=== PATIENT | male | born 1955 | race Caucasian/White ===

== ENCOUNTER 2024-04-28 22:02 | Inpatient (IN) | payer MEDICARE, MEDICAID ==
[~2024-04-28] VITALS: Ht 175.3 cm; Wt 65.0 kg
[~2024-04-28 22:02] MED LIST: DOXY-354 PO
[2024-04-28 23:31] LABS: BASOPHILS % (AUTO) 0.9 % (0.0-2.0); HEMATOCRIT 37.1 % (41-53); HEMOGLOBIN 12.4 g/dL (13.5-17.5); LYMPHOCYTES # (AUTO) 2.6 K/uL (1.0-4.8); LYMPHOCYTES % (AUTO) 19.5 % (22.0-44.0); MEAN CORPUSCULAR HEMOGLOBIN 28.3 pg (26.0-34.0); MEAN CORPUSCULAR HGB CONC 33.3 G/dL (31.0-37.0); MEAN CORPUSCULAR VOLUME 85 fL (80-100); MONOCYTES # (AUTO) 1.6 K/uL (0.1-1.0); MONOCYTES % (AUTO) 11.6 % (2.0-9.0); PLATELET COUNT (AUTO) 411 K/uL (150-450); RED BLOOD CELL COUNT(AUTO) 4.37 MIL/uL (4.50-5.90); RED CELL DISTRIBUTION WIDTH 15.6 % (11.5-14.5); WHITE BLOOD COUNT (AUTO) 13.4 K/uL (4.5-11.0)
[2024-04-28 23:39] LABS: ANION GAP 11 mmol/L (8-16); CALCIUM, TOTAL 8.8 mg/dL (8.8-10.5); CARBON DIOXIDE 26 mmol/L (22-29); CHLORIDE 105 mmol/L (98-107); CREATININE 1.29 mg/dL (0.60-1.30); GLOMERULAR FILTR. RATE CALC 55 mL/min (>60); GLUCOSE,RANDOM 98 mg/dL (70-110); POTASSIUM 3.5 mmol/L (3.5-5.1); SODIUM SERUM 142 mmol/L (136-145); UREA NITROGEN, BLOOD 27 mg/dL (7-18)
[2024-04-28 23:48] LABS: ALCOHOL, BLOOD (SERUM) < 3 mg/dL (0-10)
[2024-04-29] MEDS: HALOPERIDOL LACTATE 5 MG/ML VIAL IM ONE (00:40)
[2024-04-29] MEDS: LORazepam 2 MG/ML VIAL IM ONE (00:41)
[2024-04-29] MEDS: DiphenhydrAMINE HCL 50 MG/ML VIAL IM ONE (00:41)
[2024-04-29 03:14] LABS: COVID AG,FIA SOURCE NASAL SWAB
[2024-04-29 03:25] LABS: SARS-COV2 (COVID) ANTIGEN,FIA Negative (Negative)
[2024-04-29] MEDS ORDERED: HALOPERIDOL 5 MG TABLET PO PRN (05:15)
[2024-04-29] MEDS ORDERED: ZOLPIDEM TARTRATE 10 MG TABLET PO PRN (05:15)
[2024-04-30 00:23] VITALS: BP 119/69; PULSE 65; RESP 17; TEMP 97.3; O2SAT 97
[2024-04-30 01:35] VITALS: BP 119/69; PULSE 65; RESP 17; TEMP 97.3
[2024-04-30] MEDS ORDERED: DOCUSATE SODIUM 100 MG CAPSULE PO PRN (05:45)
[2024-04-30] MEDS ORDERED: CloNIDine HCL 0.1 MG TABLET PO PRN (05:45)
[2024-04-30] MEDS ORDERED: PETROLATUM,WHITE 28 GM JELLY TP PRN (05:45)
[2024-04-30] MEDS ORDERED: MAG HYDROX/ALUMINUM HYD/SIMETH ES 30 ML SUSPENSION UDCUP PO PRN (05:45)
[2024-04-30] MEDS ORDERED: IBUPROFEN 600 MG TABLET PO PRN (05:45)
[2024-04-30] MEDS ORDERED: LOPERAMIDE HCL 2 MG CAPSULE PO PRN (05:45)
[2024-04-30] MEDS ORDERED: MAGNESIUM HYDROXIDE SUSPENSION 30 ML UDCUP PO PRN (05:45)
[2024-04-30] MEDS ORDERED: ONDANSETRON HCL 4 MG TABLET PO PRN (05:45)
[2024-04-30] MEDS ORDERED: ALBUTEROL SULFATE HFA 90 MCG/PUFF 8 GM INHALER IH PRN (05:45)
[2024-04-30] MEDS ORDERED: OMEPRAZOLE 20 MG CAPSULE PO PRN (05:45)
[2024-04-30] MEDS ORDERED: BACITRACIN 28 GM OINTMENT TP PRN (05:45)
[2024-04-30] MEDS ORDERED: BENZOCAINE/MENTHOL LOZENGE PO PRN (05:45)
[2024-04-30 08:39] LABS: APPEARANCE,URINE CLEAR (CLEAR); BILIRUBIN,URINE NEGATIVE (NEGATIVE); COLOR,URINE YELLOW (YELLOW); GLUCOSE, URINE (UA) NEGATIVE (NEGATIVE); KETONES,URINE NEGATIVE (NEGATIVE); LEUKOCYTE ESTERASE ,URINE NEGATIVE (NEGATIVE); NITRATE,URINE NEGATIVE (NEGATIVE); OCCULT BLOOD,URINE NEGATIVE (NEGATIVE); PROTEIN,URINE 30-70 mg/dL (NEGATIVE); UROBILINOGEN,URINE <=1.0 mg/dL (<=1.0)
[2024-04-30 08:50] VITALS: BP 119/76; PULSE 78; RESP 19; TEMP 97.9; O2SAT 95
[2024-04-30 09:04] LABS: ALCOHOL, URINE DRUG SCREEN NEGATIVE (NEGATIVE); AMPHET/METH SCREEN,URINE POSITIVE (NEGATIVE); BARBITURATE SCREEN, URINE NEGATIVE (NEGATIVE); BENZODIAZEPINES SCREEN,URINE NEGATIVE (NEGATIVE); CANNABINOID SCREEN,URINE NEGATIVE (NEGATIVE); COCAINE SCREEN,URINE NEGATIVE (NEGATIVE); METHADONE SCREEN, URINE NEGATIVE (NEGATIVE); OPIATE SCREEN,URINE NEGATIVE (NEGATIVE); PHENCYCLIDINE SCREEN,URINE NEGATIVE (NEGATIVE)
[2024-04-30] MEDS: NICOTINE 21 MG/24 HOUR PATCH TD SCH (09:56)
[2024-04-30] MEDS: ACETAMINOPHEN 325 MG TABLET PO PRN (20:25)
[2024-04-30 21:09] VITALS: BP 130/84; PULSE 66; RESP 18; TEMP 97.7; O2SAT 100
[2024-04-30 23:07] VITALS: BP 130/84; PULSE 66; RESP 18; TEMP 97.7; O2SAT 98
[2024-05-01 08:24] VITALS: BP 125/69; PULSE 64; RESP 17; TEMP 98.3; O2SAT 98
[2024-05-01] MEDS: RisperiDONE 1 MG TABLET PO SCH (16:26)
[2024-05-01 20:26] VITALS: BP 134/76; PULSE 63; RESP 18; TEMP 97.7; O2SAT 97
[2024-05-02 08:53] VITALS: BP 127/66; PULSE 64; RESP 16; TEMP 97.2; O2SAT 98
[2024-05-02 20:22] VITALS: BP 151/78; PULSE 72; RESP 21; TEMP 98.1; O2SAT 98
[2024-05-03 08:23] VITALS: BP 135/72; PULSE 62; RESP 16; TEMP 97.7; O2SAT 97
[2024-05-03 20:24] VITALS: BP 148/87; PULSE 70; RESP 20; TEMP 97; O2SAT 97
[2024-05-04 08:17] VITALS: BP 124/76; PULSE 70; RESP 14; TEMP 97.6; O2SAT 97
[2024-05-04] MEDS: LORazepam 2 MG TABLET PO PRN (20:20)
[2024-05-04 21:31] VITALS: BP 138/74; PULSE 62; RESP 18; TEMP 97.5; O2SAT 98
[2024-05-05 08:48] VITALS: BP 137/77; PULSE 71; RESP 18; TEMP 97.9; O2SAT 98
[2024-05-05 20:13] VITALS: BP 148/87; PULSE 84; TEMP 98.1; O2SAT 97
[2024-05-06 18:37] VITALS: BP 127/59; PULSE 66; RESP 17; TEMP 97.6; O2SAT 98
[2024-05-06 20:05] VITALS: BP 140/85; PULSE 88; RESP 18; TEMP 98.2; O2SAT 96
[2024-05-07 08:45] VITALS: BP 145/75; PULSE 70; RESP 17; TEMP 98.1; O2SAT 97
[2024-05-07 20:32] VITALS: BP 150/82; PULSE 72; RESP 18; TEMP 98.7; O2SAT 91
[2024-05-08 11:27] VITALS: BP 144/78; PULSE 73; RESP 18; TEMP 98; O2SAT 97
[2024-05-08 19:40] VITALS: RESP 18
[2024-05-08 20:41] VITALS: BP 114/62; PULSE 77; RESP 18; TEMP 97.7; O2SAT 96
[2024-05-09 10:40] VITALS: BP 110/75; PULSE 66; RESP 18; TEMP 97.3; O2SAT 100
[2024-05-09 22:08] VITALS: BP 133/83; PULSE 82; RESP 18; TEMP 96.1; O2SAT 98
[2024-05-10 09:01] VITALS: BP 134/78; PULSE 65; RESP 18; TEMP 97.6; O2SAT 97
[2024-05-10 20:47] VITALS: BP 143/83; PULSE 72; RESP 18; TEMP 97.9; O2SAT 99
[2024-05-11 09:21] VITALS: BP 140/80; PULSE 90; RESP 18; TEMP 98.3; O2SAT 100
[2024-05-11] MEDS ORDERED: RISP-31 PO (13:15)
== END 2024-05-11 16:32 | disposition home or self-care (01) | DRG 885 ==
LOC: EMS 22:07 → B2X 04-29 18:35
PROVIDERS: ADMIT Psychiatry & Neurology Psychiatry; ATTEND Psychiatry & Neurology Psychiatry
PROC: GZHZZZZ Group Psychotherapy (ICD-10-PCS; principal; 2024-05-01)
PROC: GZ52ZZZ Individual Psychotherapy, Cognitive (ICD-10-PCS; 2024-05-01)
DX: F25.9 Schizoaffective disorder, unspecified (principal); I10 Essential (primary) hypertension; K21.9 Gastro-esophageal reflux disease without esophagitis; G47.00 Insomnia, unspecified; Z20.822 Contact with and (suspected) exposure to COVID-19; F15.10 Other stimulant abuse, uncomplicated; F41.9 Anxiety disorder, unspecified; Z72.0 Tobacco use; Z79.899 Other long term (current) drug therapy; Z91.148 Patient's other noncompliance with medication regimen for other reason
CPT/HCPCS: 80048; 80307; 81003; 85025; 99285; G0480; J1200; J1630; J2060

== ENCOUNTER 2024-10-04 16:43 | Emergency (ER) | payer MEDICARE, MEDICAID ==
[~2024-10-04] VITALS: Ht 167.6 cm; Wt 63.6 kg
[~2024-10-04 16:43] MED LIST changes: -DOXY-354 PO; +RISP-31 PO
[2024-10-04 16:50] VITALS: BP 130/77; PULSE 76; RESP 18; TEMP 98; O2SAT 99
[2024-10-04 18:18] LABS: EOSINOPHILS % (AUTO) 1.6 % (1.0-6.0); HEMOGLOBIN 12.4 g/dL (13.5-17.5); LYMPHOCYTES # (AUTO) 1.9 K/uL (1.0-4.8); LYMPHOCYTES % (AUTO) 20.4 % (22.0-44.0); MEAN CORPUSCULAR HEMOGLOBIN 29.4 pg (26.0-34.0); MEAN CORPUSCULAR HGB CONC 33.4 G/dL (31.0-37.0); MEAN CORPUSCULAR VOLUME 88 fL (80-100); MONOCYTES # (AUTO) 0.9 K/uL (0.1-1.0); MONOCYTES % (AUTO) 9.5 % (2.0-9.0); NEUTROPHILS # (AUTO) 6.3 K/uL (1.8-7.7); NEUTROPHILS % (AUTO) 67.5 % (40.0-70.0); PLATELET COUNT (AUTO) 362 K/uL (150-450); WHITE BLOOD COUNT (AUTO) 9.4 K/uL (4.5-11.0)
[2024-10-04 18:29] LABS: CALCIUM, TOTAL 8.5 mg/dL (8.8-10.5); CREATININE 1.22 mg/dL (0.60-1.30); POTASSIUM 3.6 mmol/L (3.5-5.1)
[2024-10-04 18:34] LABS: ALBUMIN 3.7 g/dL (3.4-5.0); BILIRUBIN,TOTAL 0.9 mg/dL (0.1-1.0)
== END 2024-10-04 18:44 | disposition home or self-care (01) ==
LOC: EMS 16:43
DX: R53.1 Weakness (principal); R53.83 Other fatigue; R41.0 Disorientation, unspecified; F17.210 Nicotine dependence, cigarettes, uncomplicated
CPT/HCPCS: 80053; 85025; 99283

== ENCOUNTER 2024-10-05 07:08 | Inpatient (IN) | payer MEDICARE, MEDICAID ==
[~2024-10-05] VITALS: Ht 175.3 cm; Wt 72.1 kg
[2024-10-05 07:57] LABS: COVID AG,FIA SOURCE NASAL SWAB
[2024-10-05 08:25] LABS: SARS-COV2 (COVID) ANTIGEN,FIA Negative (Negative)
[2024-10-05] MEDS ORDERED: LORazepam 2 MG TABLET PO PRN (09:00)
[2024-10-05] MEDS ORDERED: HALOPERIDOL 5 MG TABLET PO PRN (09:00)
[2024-10-05 10:53] VITALS: O2SAT 98
[2024-10-05 12:31] VITALS: BP 145/82; PULSE 78; RESP 17; TEMP 97.8; O2SAT 99
[2024-10-05 20:17] VITALS: BP 152/72; PULSE 70; RESP 18; TEMP 97.6; O2SAT 100
[2024-10-06 08:23] LABS: HEMOGLOBIN A1C 5.3 % (3.8-5.6)
[2024-10-06 08:35] LABS: CHOL/HDL RATIO 2.9 (4.2-7.3)
[2024-10-06 09:01] VITALS: BP 134/72; PULSE 67; RESP 18; TEMP 98; O2SAT 98
[2024-10-06] MEDS ORDERED: DOCUSATE SODIUM 100 MG CAPSULE PO PRN (15:15)
[2024-10-06] MEDS ORDERED: IBUPROFEN 400 MG TABLET PO PRN (15:15)
[2024-10-06] MEDS ORDERED: ALBUTEROL SULFATE HFA 90 MCG/PUFF 8 GM INHALER IH PRN (15:15)
[2024-10-06] MEDS ORDERED: MAG HYDROX/ALUMINUM HYD/SIMETH ES 30 ML SUSPENSION UDCUP PO PRN (15:15)
[2024-10-06] MEDS ORDERED: CloNIDine HCL 0.1 MG TABLET PO PRN (15:15)
[2024-10-06] MEDS ORDERED: ACETAMINOPHEN 325 MG TABLET PO PRN (15:15)
[2024-10-06] MEDS ORDERED: PETROLATUM,WHITE 28 GM JELLY TP PRN (15:15)
[2024-10-06] MEDS ORDERED: ONDANSETRON 4 MG TABLET PO PRN (15:15)
[2024-10-06] MEDS ORDERED: GuaiFENesin/D-METHORPHAN [SUGAR-FREE] 200-20MG/10 ML SYRUP UDCUP PO PRN (15:15)
[2024-10-06] MEDS ORDERED: LOPERAMIDE HCL 2 MG CAPSULE PO PRN (15:15)
[2024-10-06] MEDS ORDERED: MAGNESIUM HYDROXIDE SUSPENSION 30 ML UDCUP PO PRN (15:15)
[2024-10-06 21:13] VITALS: BP 149/93; PULSE 80; RESP 18; TEMP 97.6; O2SAT 100
[2024-10-07 08:19] VITALS: BP 142/79; PULSE 82; RESP 16; TEMP 98.1; O2SAT 99
[2024-10-07 09:03] LABS: HEMOGLOBIN A1C 5.5 % (3.8-5.6)
[2024-10-07 09:12] LABS: CHOL/HDL RATIO 3.2 (4.2-7.3); THYROID STIMULATING HORMONE 1.45 uIU/mL (0.36-3.74)
[2024-10-07 20:25] VITALS: BP 118/90; PULSE 83; RESP 17; TEMP 98; O2SAT 100
[2024-10-08 08:47] VITALS: BP 165/75; PULSE 69; RESP 18; TEMP 97.8; O2SAT 98
[2024-10-08 09:27] LABS: APPEARANCE,URINE CLEAR (CLEAR); BILIRUBIN,URINE NEGATIVE (NEGATIVE); COLOR,URINE YELLOW (YELLOW); GLUCOSE, URINE (UA) NEGATIVE (NEGATIVE); KETONES,URINE TRACE mg/dL (NEGATIVE); LEUKOCYTE ESTERASE ,URINE NEGATIVE (NEGATIVE); NITRATE,URINE NEGATIVE (NEGATIVE); OCCULT BLOOD,URINE NEGATIVE (NEGATIVE); PH,URINE 6.5 (5.0-8.0); PH,URINE DRUG SCREEN 6.5 (5.0-8.0); PROTEIN,URINE TRACE mg/dL (NEGATIVE); SPECIFIC GRAVITIY, URINE 1.037 (1.003-1.030)
[2024-10-08 09:30] LABS: ALCOHOL, URINE DRUG SCREEN NEGATIVE (NEGATIVE); AMPHET/METH SCREEN,URINE POSITIVE (NEGATIVE); BARBITURATE SCREEN, URINE NEGATIVE (NEGATIVE); BENZODIAZEPINES SCREEN,URINE NEGATIVE (NEGATIVE); CANNABINOID SCREEN,URINE NEGATIVE (NEGATIVE); COCAINE SCREEN,URINE NEGATIVE (NEGATIVE); METHADONE SCREEN, URINE NEGATIVE (NEGATIVE); OPIATE SCREEN,URINE NEGATIVE (NEGATIVE); PHENCYCLIDINE SCREEN,URINE NEGATIVE (NEGATIVE)
[2024-10-08 20:37] VITALS: BP 140/86; PULSE 93; RESP 16; TEMP 97.7; O2SAT 98
[2024-10-08] MEDS: ZOLPIDEM TARTRATE 10 MG TABLET PO PRN (20:45)
[2024-10-09 09:08] VITALS: BP 129/84; PULSE 74; RESP 17; TEMP 98.2; O2SAT 98
[2024-10-09 20:41] VITALS: BP 130/80; PULSE 80; RESP 16; TEMP 97.2; O2SAT 97
[2024-10-10 08:14] VITALS: BP 120/68; PULSE 95; RESP 17; TEMP 97.5; O2SAT 99
[2024-10-10 20:24] VITALS: BP 128/82; PULSE 92; RESP 18; TEMP 97.6; O2SAT 99
[2024-10-11 08:07] VITALS: BP 121/64; PULSE 72; RESP 16; TEMP 98.2; O2SAT 100
[2024-10-11 21:05] VITALS: BP 122/84; PULSE 81; RESP 18; TEMP 97.3; O2SAT 99
[2024-10-12 08:15] VITALS: BP 109/70; PULSE 94; RESP 18; TEMP 97.3; O2SAT 98
[2024-10-12 21:43] VITALS: BP 134/73; PULSE 86; RESP 18; TEMP 97.6; O2SAT 99
[2024-10-13 08:20] VITALS: BP 129/72; PULSE 92; RESP 17; TEMP 97.5; O2SAT 97
[2024-10-13 20:54] VITALS: BP 130/78; PULSE 73; RESP 16; TEMP 97.2; O2SAT 98
[2024-10-14 08:27] VITALS: BP 131/82; PULSE 75; RESP 17; TEMP 96.6; O2SAT 100
[2024-10-14 20:58] VITALS: BP 113/77; PULSE 85; RESP 18; TEMP 97.7; O2SAT 95
[2024-10-15 08:54] VITALS: BP 119/69; PULSE 87; RESP 17; TEMP 97.9; O2SAT 99
[2024-10-15 21:47] VITALS: BP 142/53; PULSE 89; RESP 16; TEMP 97.9; O2SAT 98
[2024-10-16 09:27] VITALS: BP 131/68; PULSE 60; RESP 18; TEMP 97.9; O2SAT 100
[2024-10-16 20:13] VITALS: BP 132/72; PULSE 64; RESP 19; TEMP 98; O2SAT 94
[2024-10-17 08:25] VITALS: BP 138/75; PULSE 90; RESP 18; TEMP 96.7; O2SAT 100
[2024-10-17] MEDS: NICOTINE 14 MG/24 HOUR PATCH TD PRN (09:08)
[2024-10-17 20:13] VITALS: BP 136/82; PULSE 82; RESP 18; TEMP 95.8; O2SAT 100
[2024-10-18 08:39] VITALS: BP 119/69; PULSE 71; RESP 18; TEMP 97.5; O2SAT 100
[2024-10-18 20:52] VITALS: BP 137/87; PULSE 81; RESP 18; TEMP 96.5; O2SAT 99
[2024-10-19 08:25] VITALS: BP 120/74; PULSE 63; RESP 18; TEMP 97.7; O2SAT 99
== END 2024-10-19 16:14 | disposition home or self-care (01) | DRG 885 ==
LOC: EMS 07:08 → B3A 10:52 → B2S 10-17 10:46
PROVIDERS: ADMIT Psychiatry & Neurology Child & Adolescent Psychiatry; ATTEND Psychiatry & Neurology Child & Adolescent Psychiatry
PROC: GZHZZZZ Group Psychotherapy (ICD-10-PCS; principal; 2024-10-06)
PROC: GZ56ZZZ Individual Psychotherapy, Supportive (ICD-10-PCS; 2024-10-06)
DX: F25.0 Schizoaffective disorder, bipolar type (principal); I10 Essential (primary) hypertension; K21.9 Gastro-esophageal reflux disease without esophagitis; G47.00 Insomnia, unspecified; Z20.822 Contact with and (suspected) exposure to COVID-19; F15.10 Other stimulant abuse, uncomplicated; F10.10 Alcohol abuse, uncomplicated; Y90.9 Presence of alcohol in blood, level not specified; F17.210 Nicotine dependence, cigarettes, uncomplicated; Z91.199 Patient's noncompliance with other medical treatment and regimen due to unspecified reason
CPT/HCPCS: 80061; 80307; 81003; 83036; 84443; 99285

== ENCOUNTER 2025-03-19 17:06 | Inpatient (IN) | payer MEDICARE, MEDICAID ==
[~2025-03-19] VITALS: Ht 175.3 cm; Wt 64.0 kg
[2025-03-19 18:39] LABS: BASOPHILS % (AUTO) 0.7 % (0.0-2.0); EOSINOPHILS % (AUTO) 1.6 % (1.0-6.0); HEMOGLOBIN 12.4 g/dL (13.5-17.5); LYMPHOCYTES # (AUTO) 2.4 K/uL (1.0-4.8); LYMPHOCYTES % (AUTO) 17.5 % (22.0-44.0); MEAN CORPUSCULAR HEMOGLOBIN 28.8 pg (26.0-34.0); MEAN CORPUSCULAR HGB CONC 32.6 G/dL (31.0-37.0); MEAN CORPUSCULAR VOLUME 88 fL (80-100); MONOCYTES # (AUTO) 1.4 K/uL (0.1-1.0); NEUTROPHILS # (AUTO) 9.5 K/uL (1.8-7.7); NEUTROPHILS % (AUTO) 70.2 % (40.0-70.0); PLATELET COUNT (AUTO) 384 K/uL (150-450); WHITE BLOOD COUNT (AUTO) 13.5 K/uL (4.5-11.0)
[2025-03-19 18:42] LABS: ANION GAP 8 mmol/L (8-16); CALCIUM, TOTAL 9.1 mg/dL (8.8-10.5); CARBON DIOXIDE 26 mmol/L (22-29); CHLORIDE 105 mmol/L (98-107); CREATININE 1.11 mg/dL (0.60-1.30); GLOMERULAR FILTR. RATE CALC > 60 mL/min (>60); GLUCOSE,RANDOM 116 mg/dL (70-110); SODIUM SERUM 139 mmol/L (136-145); UREA NITROGEN, BLOOD 38 mg/dL (7-18)
[2025-03-19 19:24] LABS: ALCOHOL, BLOOD (SERUM) < 3 mg/dL (0-10)
[2025-03-19 19:33] LABS: COVID AG,FIA SOURCE NASAL SWAB
[2025-03-19 19:50] LABS: SARS-COV2 (COVID) ANTIGEN,FIA Negative (Negative)
[2025-03-19 20:43] LABS: APPEARANCE,URINE CLEAR (CLEAR); BILIRUBIN,URINE NEGATIVE (NEGATIVE); COLOR,URINE YELLOW (YELLOW); GLUCOSE, URINE (UA) NEGATIVE (NEGATIVE); KETONES,URINE NEGATIVE (NEGATIVE); LEUKOCYTE ESTERASE ,URINE NEGATIVE (NEGATIVE); NITRATE,URINE NEGATIVE (NEGATIVE); OCCULT BLOOD,URINE NEGATIVE (NEGATIVE); PH,URINE 5.5 (5.0-8.0); PH,URINE DRUG SCREEN 5.5 (5.0-8.0); PROTEIN,URINE TRACE mg/dL (NEGATIVE); SPECIFIC GRAVITIY, URINE 1.038 (1.003-1.030); UROBILINOGEN,URINE <=1.0 mg/dL (<=1.0)
[2025-03-19 20:49] LABS: ALCOHOL, URINE DRUG SCREEN NEGATIVE (NEGATIVE); AMPHET/METH SCREEN,URINE POSITIVE (NEGATIVE); BARBITURATE SCREEN, URINE NEGATIVE (NEGATIVE); BENZODIAZEPINES SCREEN,URINE NEGATIVE (NEGATIVE); CANNABINOID SCREEN,URINE NEGATIVE (NEGATIVE); COCAINE SCREEN,URINE NEGATIVE (NEGATIVE); METHADONE SCREEN, URINE NEGATIVE (NEGATIVE); OPIATE SCREEN,URINE NEGATIVE (NEGATIVE); PHENCYCLIDINE SCREEN,URINE NEGATIVE (NEGATIVE)
[2025-03-20] MEDS ORDERED: HALOPERIDOL 5 MG TABLET PO PRN (02:45)
[2025-03-20] MEDS ORDERED: LORazepam 2 MG TABLET PO PRN (02:45)
[2025-03-20 02:46] VITALS: BP 98/68; PULSE 62; RESP 18; TEMP 96.9; O2SAT 97
[2025-03-20] MEDS ORDERED: BENZOCAINE/MENTHOL [CEPACOL] LOZENGE PO PRN (07:45)
[2025-03-20] MEDS ORDERED: LOPERAMIDE HCL 2 MG CAPSULE PO PRN (07:45)
[2025-03-20] MEDS ORDERED: CloNIDine HCL 0.1 MG TABLET PO PRN (07:45)
[2025-03-20] MEDS ORDERED: DOCUSATE SODIUM 100 MG CAPSULE PO PRN (07:45)
[2025-03-20] MEDS ORDERED: MAG HYDROX/ALUMINUM HYD/SIMETH ES 30 ML SUSPENSION UDCUP PO PRN (07:45)
[2025-03-20] MEDS ORDERED: IBUPROFEN 600 MG TABLET PO PRN (07:45)
[2025-03-20] MEDS ORDERED: ONDANSETRON 4 MG TABLET PO PRN (07:45)
[2025-03-20] MEDS ORDERED: ALBUTEROL SULFATE HFA 90 MCG/PUFF 8 GM INHALER IH PRN (07:45)
[2025-03-20] MEDS ORDERED: ACETAMINOPHEN 325 MG TABLET PO PRN (07:45)
[2025-03-20] MEDS ORDERED: MAGNESIUM HYDROXIDE SUSPENSION 30 ML UDCUP PO PRN (07:45)
[2025-03-20] MEDS ORDERED: OMEPRAZOLE 20 MG CAPSULE PO PRN (07:45)
[2025-03-20] MEDS ORDERED: PETROLATUM,WHITE 28 GM JELLY TP PRN (07:45)
[2025-03-20] MEDS ORDERED: BACITRACIN 28 GM OINTMENT TP PRN (07:45)
[2025-03-20 10:46] VITALS: BP 136/83; PULSE 68; RESP 18; TEMP 98; O2SAT 99
[2025-03-20] MEDS: RisperiDONE 1 MG TABLET PO SCH (16:28)
[2025-03-20 21:14] VITALS: BP 127/87; PULSE 75; RESP 18; TEMP 97.7
[2025-03-21 09:00] VITALS: BP 144/82; PULSE 78; RESP 18; TEMP 98; O2SAT 100
[2025-03-21 22:10] VITALS: BP 148/96; PULSE 80; RESP 18; TEMP 98; O2SAT 98
[2025-03-22] MEDS: MEMANTINE HCL 5 MG TABLET PO SCH (10:18)
[2025-03-22 10:47] VITALS: BP 111/78; PULSE 70; RESP 18; TEMP 97.5; O2SAT 100
[2025-03-23 10:12] VITALS: BP 119/90; PULSE 85; RESP 18; TEMP 97.6; O2SAT 98
[2025-03-23 20:58] VITALS: BP 141/94; PULSE 79; RESP 18; TEMP 97.3; O2SAT 96
[2025-03-24 08:58] VITALS: BP 131/99; PULSE 69; RESP 19; TEMP 96.7; O2SAT 99
[2025-03-24] MEDS: ZOLPIDEM TARTRATE 10 MG TABLET PO PRN (20:30)
[2025-03-24 21:55] VITALS: BP 149/100; PULSE 89; RESP 19; TEMP 97.3; O2SAT 100
[2025-03-25 18:44] VITALS: BP 142/95; PULSE 82; RESP 18; TEMP 97.4; O2SAT 100
[2025-03-25 22:13] VITALS: BP 138/90; PULSE 80; RESP 18; TEMP 97.6; O2SAT 98
[2025-03-26 14:11] VITALS: BP 141/69; PULSE 78; RESP 20; TEMP 98.2; O2SAT 97
[2025-03-26 21:28] VITALS: BP 160/90; PULSE 79; RESP 19; TEMP 97; O2SAT 99
[2025-03-27 08:00] VITALS: BP 144/90; PULSE 77; RESP 18; TEMP 97; O2SAT 99
[2025-03-27 20:00] VITALS: BP 110/82; PULSE 87; RESP 18; TEMP 97.5; O2SAT 100
[2025-03-28 12:39] VITALS: BP 138/103; PULSE 78; RESP 18; TEMP 97.3; O2SAT 97
[2025-03-28 20:38] VITALS: BP 134/87; PULSE 80; RESP 18; TEMP 97.6
[2025-03-29 08:58] VITALS: BP 138/83; PULSE 72; RESP 18; TEMP 96.7; O2SAT 99
[2025-03-29] MEDS ORDERED: RISP-31 PO (14:21)
== END 2025-03-29 16:11 | DRG 885 ==
LOC: EMS 17:09 → 3EC 03-20 02:29
PROVIDERS: ADMIT Psychiatry & Neurology Psychiatry; ATTEND Psychiatry & Neurology Psychiatry
DX: F20.9 Schizophrenia, unspecified (principal); F15.20 Other stimulant dependence, uncomplicated; I10 Essential (primary) hypertension; Z20.822 Contact with and (suspected) exposure to COVID-19; E55.9 Vitamin D deficiency, unspecified; G47.00 Insomnia, unspecified; K59.00 Constipation, unspecified; K21.9 Gastro-esophageal reflux disease without esophagitis; F17.210 Nicotine dependence, cigarettes, uncomplicated; Z91.148 Patient's other noncompliance with medication regimen for other reason
CPT/HCPCS: 80048; 80307; 81003; 85025; 99285; G0480

== ENCOUNTER 2025-04-02 19:32 | Inpatient (IN) | payer MEDICARE, MEDICAID ==
[~2025-04-02] VITALS: Ht 175.3 cm; Wt 62.7 kg
[2025-04-02 20:14] LABS: BASOPHILS % (AUTO) 0.8 % (0.0-2.0); EOSINOPHILS % (AUTO) 1.1 % (1.0-6.0); HEMATOCRIT 38.8 % (41-53); HEMOGLOBIN 12.9 g/dL (13.5-17.5); LYMPHOCYTES # (AUTO) 2.5 K/uL (1.0-4.8); LYMPHOCYTES % (AUTO) 24.3 % (22.0-44.0); MEAN CORPUSCULAR HEMOGLOBIN 28.9 pg (26.0-34.0); MEAN CORPUSCULAR HGB CONC 33.1 G/dL (31.0-37.0); MEAN CORPUSCULAR VOLUME 87 fL (80-100); MONOCYTES # (AUTO) 1.1 K/uL (0.1-1.0); MONOCYTES % (AUTO) 10.1 % (2.0-9.0); NEUTROPHILS # (AUTO) 6.7 K/uL (1.8-7.7); NEUTROPHILS % (AUTO) 63.7 % (40.0-70.0); PLATELET COUNT (AUTO) 455 K/uL (150-450); RED BLOOD CELL COUNT(AUTO) 4.45 MIL/uL (4.50-5.90); RED CELL DISTRIBUTION WIDTH 14.6 % (11.5-14.5); WHITE BLOOD COUNT (AUTO) 10.5 K/uL (4.5-11.0)
[2025-04-02 20:22] LABS: ANION GAP 14 mmol/L (8-16); CALCIUM, TOTAL 9.1 mg/dL (8.8-10.5); CARBON DIOXIDE 26 mmol/L (22-29); CHLORIDE 103 mmol/L (98-107); CREATININE 1.12 mg/dL (0.60-1.30); GLOMERULAR FILTR. RATE CALC > 60 mL/min (>60); GLUCOSE,RANDOM 93 mg/dL (70-110); POTASSIUM 3.6 mmol/L (3.5-5.1); SODIUM SERUM 143 mmol/L (136-145); UREA NITROGEN, BLOOD 35 mg/dL (7-18)
[2025-04-02 20:22] LABS: COVID AG,FIA SOURCE NASAL SWAB
[2025-04-02 20:45] LABS: SARS-COV2 (COVID) ANTIGEN,FIA Negative (Negative)
[2025-04-02 21:10] LABS: ALCOHOL, BLOOD (SERUM) < 3 mg/dL (0-10)
[2025-04-02 21:35] LABS: ALCOHOL, URINE DRUG SCREEN NEGATIVE (NEGATIVE); AMPHET/METH SCREEN,URINE POSITIVE (NEGATIVE); BARBITURATE SCREEN, URINE NEGATIVE (NEGATIVE); BENZODIAZEPINES SCREEN,URINE NEGATIVE (NEGATIVE); CANNABINOID SCREEN,URINE NEGATIVE (NEGATIVE); COCAINE SCREEN,URINE NEGATIVE (NEGATIVE); METHADONE SCREEN, URINE NEGATIVE (NEGATIVE); OPIATE SCREEN,URINE NEGATIVE (NEGATIVE); PHENCYCLIDINE SCREEN,URINE NEGATIVE (NEGATIVE)
[2025-04-02 21:41] LABS: APPEARANCE,URINE CLEAR (CLEAR); BILIRUBIN,URINE NEGATIVE (NEGATIVE); COLOR,URINE YELLOW (YELLOW); GLUCOSE, URINE (UA) NEGATIVE (NEGATIVE); LEUKOCYTE ESTERASE ,URINE NEGATIVE (NEGATIVE); NITRATE,URINE NEGATIVE (NEGATIVE); OCCULT BLOOD,URINE TRACE (NEGATIVE); PH,URINE 5.5 (5.0-8.0); PH,URINE DRUG SCREEN 5.5 (5.0-8.0); PROTEIN,URINE 30-70 mg/dL (NEGATIVE); SPECIFIC GRAVITIY, URINE 1.034 (1.003-1.030); UROBILINOGEN,URINE <=1.0 mg/dL (<=1.0)
[2025-04-02 22:01] LABS: WBC,URINE 0-2 /HPF (0-5)
[2025-04-02 22:02] LABS: BACTERIA,URINE Rare /HPF (None Seen); SQUAMOUS EPITHELIAL CELL,UR Rare /LPF (None Seen); URINALYSIS COMMENT Many Sperm seen.
[2025-04-02] MEDS ORDERED: LORazepam 2 MG TABLET PO PRN (22:15)
[2025-04-02] MEDS ORDERED: haloperidoL 5 MG TABLET PO PRN (22:15)
[2025-04-03] MEDS: ZOLPIDEM TARTRATE 10 MG TABLET PO PRN (02:28)
[2025-04-03 02:36] VITALS: BP 125/79; PULSE 90; RESP 18; TEMP 98.2; O2SAT 96
[2025-04-03] MEDS ORDERED: PNEUMOCOCCAL VACCINE POLYVALENT 0.5 ML SYRINGE [PPSV23] IM. ONE (02:45)
[2025-04-03 08:16] VITALS: BP 124/76; PULSE 65; RESP 16; TEMP 97.9; O2SAT 98
[2025-04-03] MEDS ORDERED: ONDANSETRON 4 MG TABLET PO PRN (08:45)
[2025-04-03] MEDS ORDERED: BENZOCAINE/MENTHOL [CEPACOL] LOZENGE PO PRN (08:45)
[2025-04-03] MEDS ORDERED: BACITRACIN 28 GM OINTMENT TP PRN (08:45)
[2025-04-03] MEDS ORDERED: ALBUTEROL SULFATE HFA 90 MCG/PUFF 8 GM INHALER IH PRN (08:45)
[2025-04-03] MEDS ORDERED: PETROLATUM,WHITE 28 GM JELLY TP PRN (08:45)
[2025-04-03] MEDS ORDERED: OMEPRAZOLE 20 MG CAPSULE PO PRN (08:45)
[2025-04-03] MEDS ORDERED: LOPERAMIDE HCL 2 MG CAPSULE PO PRN (08:45)
[2025-04-03] MEDS ORDERED: DOCUSATE SODIUM 100 MG CAPSULE PO PRN (08:45)
[2025-04-03] MEDS ORDERED: CloNIDine HCL 0.1 MG TABLET PO PRN (08:45)
[2025-04-03] MEDS ORDERED: MAG HYDROX/ALUMINUM HYD/SIMETH ES 30 ML SUSPENSION UDCUP PO PRN (08:45)
[2025-04-03] MEDS ORDERED: MAGNESIUM HYDROXIDE SUSPENSION 30 ML UDCUP PO PRN (08:45)
[2025-04-03] MEDS ORDERED: MEMA5TAB16 PO (18:59)
[2025-04-03 22:00] VITALS: BP 137/90; PULSE 74; RESP 18; TEMP 98.1; O2SAT 98
[2025-04-04 08:46] VITALS: BP 103/62; PULSE 75; RESP 18; TEMP 97.3; O2SAT 98
[2025-04-04] MEDS: NICOTINE 21 MG/24 HOUR PATCH TD SCH (10:43)
[2025-04-04] MEDS: RisperiDONE 1 MG TABLET PO SCH (14:19)
[2025-04-04] MEDS: MEMANTINE HCL 5 MG TABLET PO SCH (16:45)
[2025-04-05 02:20] VITALS: BP 142/71; PULSE 79; RESP 18; TEMP 97.5; O2SAT 99
[2025-04-05 12:41] VITALS: BP 148/93; PULSE 75; RESP 18; TEMP 97.6; O2SAT 98
[2025-04-05 22:06] VITALS: BP 138/76; PULSE 68; RESP 18; TEMP 98; O2SAT 97
[2025-04-06 09:41] VITALS: BP 131/91; PULSE 74; RESP 18; TEMP 97.4; O2SAT 100
[2025-04-06 21:00] VITALS: BP 127/78; PULSE 77; RESP 16; TEMP 98; O2SAT 96
[2025-04-07 08:45] VITALS: BP 135/91; PULSE 78; RESP 18; TEMP 97.8; O2SAT 98
[2025-04-07 21:52] VITALS: BP 117/72; PULSE 74; RESP 18; TEMP 97.5; O2SAT 99
[2025-04-08 09:16] LABS: MAGNESIUM 1.9 mg/dL (1.80-2.40); PHOSPHORUS 3.5 mg/dL (2.5-4.9)
[2025-04-08] MEDS: MULTIVITAMINS, THERAPEUTIC TABLET PO SCH (12:18)
[2025-04-08 14:48] VITALS: BP 121/84; PULSE 85; RESP 17; TEMP 97.8; O2SAT 100
[2025-04-08 21:17] VITALS: BP 102/67; PULSE 91; RESP 18; TEMP 97.6; O2SAT 96
[2025-04-09 10:35] VITALS: BP 107/80; PULSE 86; RESP 18; TEMP 97; O2SAT 99
[2025-04-09 20:52] VITALS: BP 143/90; PULSE 87; RESP 18; TEMP 97.5; O2SAT 99
[2025-04-10 09:47] VITALS: BP 122/95; PULSE 82; RESP 18; TEMP 97.3; O2SAT 100
[2025-04-11 00:48] VITALS: BP 115/88; PULSE 74; RESP 17; TEMP 98; O2SAT 99
[2025-04-11 09:40] VITALS: PULSE 76; RESP 18; TEMP 98
[2025-04-11 20:40] VITALS: BP 138/89; PULSE 70; RESP 18; TEMP 98; O2SAT 96
[2025-04-11] MEDS: ACETAMINOPHEN 325 MG TABLET PO PRN (20:44)
[2025-04-11 21:44] VITALS: RESP 18
[2025-04-12 08:23] VITALS: BP 143/92; PULSE 61; RESP 16; TEMP 97.7
[2025-04-12 20:45] VITALS: BP 129/72; PULSE 72; RESP 18; TEMP 98.3; O2SAT 98
[2025-04-13 08:00] VITALS: BP 105/82; PULSE 68; RESP 18; TEMP 98; O2SAT 100
[2025-04-13] MEDS: PALIPERIDONE 1.5 MG ER TABLET PO SCH (20:56)
[2025-04-13 21:32] VITALS: BP 147/85; PULSE 89; RESP 18; TEMP 97.5; O2SAT 98
[2025-04-14 09:00] VITALS: BP 145/87; PULSE 82; RESP 17; TEMP 97.8; O2SAT 98
[2025-04-14 20:20] VITALS: BP 124/88; PULSE 75; RESP 16; TEMP 96.5; O2SAT 98
[2025-04-14] MEDS ORDERED: PALIPERIDONE 3 MG ER TABLET PO SCH (21:00)
[2025-04-15 09:29] VITALS: BP 116/74; PULSE 74; RESP 18; TEMP 98; O2SAT 98
[2025-04-15] MEDS: PALIPERIDONE PALMITATE 234 MG/1.5 ML SYRINGE IM SCH (16:20)
[2025-04-15 20:35] VITALS: BP 117/73; PULSE 73; RESP 17; TEMP 96.8; O2SAT 98
[2025-04-15 20:55] VITALS: BP 117/73; PULSE 73; RESP 17; TEMP 96.8; O2SAT 98
[2025-04-15 21:35] VITALS: RESP 18
[2025-04-16 08:24] VITALS: BP 122/89; PULSE 82; RESP 19; TEMP 97.6; O2SAT 99
[2025-04-16 22:48] VITALS: BP 114/84; PULSE 100; RESP 18; TEMP 97.5; O2SAT 98
[2025-04-17 10:29] VITALS: BP 137/82; PULSE 89; RESP 18; TEMP 96.6; O2SAT 97
[2025-04-17 23:00] VITALS: BP 134/87; PULSE 72; RESP 18; TEMP 97.2; O2SAT 99
[2025-04-18 10:34] VITALS: BP 122/87; PULSE 92; RESP 18; TEMP 97.2; O2SAT 98
[2025-04-18 21:56] VITALS: BP 135/83; PULSE 86; RESP 18; TEMP 98.4; O2SAT 99
[2025-04-19 08:30] VITALS: BP 131/84; PULSE 70; RESP 18; TEMP 97.9; O2SAT 98
[2025-04-19 14:44] VITALS: RESP 18
[2025-04-19 21:10] VITALS: BP 136/85; PULSE 78; RESP 18; TEMP 97.9; O2SAT 98
[2025-04-19] MEDS: IBUPROFEN 600 MG TABLET PO PRN (21:18)
[2025-04-20] MEDS ORDERED: MULT-14 PO (09:53)
[2025-04-20] MEDS ORDERED: MEMA5TAB41 PO (09:53)
[2025-04-20] MEDS ORDERED: PALI234D IM (09:53)
[2025-04-20 11:09] VITALS: BP 109/70; PULSE 88; RESP 18; TEMP 97.4; O2SAT 97
== END 2025-04-20 16:04 | disposition home or self-care (01) | DRG 885 ==
LOC: EMS 19:32 → 3EI 04-03 01:40
PROVIDERS: ADMIT Psychiatry & Neurology Psychiatry; ATTEND Psychiatry & Neurology Psychiatry
PROC: GZ52ZZZ Individual Psychotherapy, Cognitive (ICD-10-PCS; principal; 2025-04-04)
DX: F25.1 Schizoaffective disorder, depressive type (principal); F15.20 Other stimulant dependence, uncomplicated; I10 Essential (primary) hypertension; K21.9 Gastro-esophageal reflux disease without esophagitis; G47.00 Insomnia, unspecified; Z20.822 Contact with and (suspected) exposure to COVID-19; F41.9 Anxiety disorder, unspecified; F03.90 Unspecified dementia, unspecified severity, without behavioral disturbance, psychotic disturbance, mood disturbance, and anxiety; F17.210 Nicotine dependence, cigarettes, uncomplicated; Z79.899 Other long term (current) drug therapy
CPT/HCPCS: 80048; 80307; 81001; 83735; 84100; 85025; 87081; 99285; G0480